=== PATIENT | male | born 1985 | race American Indian/Alaskan Native ===

== ENCOUNTER 2019-12-28 09:47 | Day surgery (SDC) | payer OTHER ==
[~2019-12-28] VITALS: Ht 177.8 cm; Wt 81.7 kg
--- NOTE | ~2019-12-28 | OR ---
[facility] [address] [place], [place] [address] Draft DATE OF OPERATION: 12/28/2019 SURGEON: Kemar Merritt MD PREOPERATIVE DIAGNOSIS: Recurrent peritonsillar abscess, left side. POSTOPERATIVE DIAGNOSIS: Recurrent peritonsillar abscess, left side. PROCEDURE: An abscess tonsillectomy. INDICATIONS: This 34-year-old male, who has had recurring problems with peritonsillar abscess. He is also known to be of a drug abuser. He has used methamphetamine 3 days ago, just coming down off that when his pain and fever became evident. The fact that the patient has had history of peritonsillar abscess same side, it was felt best care to takeout the tonsil today and treat both problems. DESCRIPTION OF PROCEDURE: The patient was placed in the supine position, had an orotracheal intubation, was placed under general anesthesia. McIvor mouth gag was inserted, but could not be fully used because the patient was edentulous on the upper half and putting the piece of gauze with upper half of the McIvor gag did not seem to help so we took off the upper and only with manual retraction with lower half to get the tongue and the endotracheal tube out of the way grasping that tonsil then with tenaculum. It was very edematous. The uvula was pushed to the right and quite edematous itself. Tissue planes were obfuscated. However, with the Bovie cautery on setting #20, we were able to dissect down finally get into the pus pocket, all the purulence was suctioned out and then using that cavity as the deep plane of the tonsil, it was dissected from the surrounding area. Because of it obstructing the view and filling up the entire pharynx plus with a trismus and the poor visualization Metzenbaum scissors were used to amputate the inferior pole, which then gave us more room. The tag of the tonsil inferiorly was then grasped with a tenaculum was dissected from the pharyngeal musculature. About 3 mL of 0.5% Marcaine with 1:200,000 epinephrine were injected superficially in the area trying to avoid an intravascular injection and some bismuth subgallate was placed into the tonsillar fossa to help with postop hemostasis. Estimated blood loss was 150 to 200 mL. Length from we got it out, bleeding stopped. The patient went to the recovery room in good condition. He will be observed there before sent home. He is able to go home today if patient is PATIENT NAME: BETTY SANCHEZ OPERATIVE REPORT DATE OF : 83 REPORT #: [id number] PHYSICIAN: KEMAR MERRITT MD PCP: NO PRIMARY CARE PHYSICIAN REPORT IS CONFIDENTIAL AND NOT TO BE RELEASED WITHOUT AUTHORIZATION [facility] [address] [place] [id number] [address] able to tolerate fluids. Kemar Merritt MD [facility] /[id number] Copies: ~ PATIENT NAME: BETTY SANCHEZ SR OPERATIVE REPORT DATE OF : 83 REPORT #: [id number] PHYSICIAN: KEMAR MERRITT MD PCP: NO PRIMARY CARE PHYSICIAN REPORT IS CONFIDENTIAL AND NOT TO BE RELEASED WITHOUT AUTHORIZATION
[2019-12-28] MEDS ORDERED: SEROQUEL XR50 MG PO (10:10)
--- NOTE | 2019-12-28 13:25 | NUR ---
12/28/19 1325 Sheets,Saadia 1319 PT ARRIVED TO PACU WITH ORAL AIRWAY IN PLACE, JAW THRUST USED TO MAINTAIN AIRWAY. RESP EVEN AND UNLABORED. VSS.
--- NOTE | 2019-12-28 14:58 | NUR ---
1430: PATIENT TRANSFERRED TO DAY SURGERY ROOM 11 FROM PACU. PATIENT VERY DROWSY. WAKES WITH TOUCH AND VERBAL STIMULI. ANSWERS SIMPLE QUESTIONS, THEN QUICKLY FALLS BACK TO SLEEP. DENIES PAIN AND NAUSEA. NO DRAINAGE SEEN FROM MOUTH. IV SITE WNL. SCDs ON. CALL LIGHT WNL. PULSE OX LEFT ON PATIENT.
[2019-12-28] MEDS ORDERED: AMOXICILLIN500 MG PO (15:17)
[2019-12-28] MEDS ORDERED: TYLENOL WITH C1 EACH PO (15:18)
--- NOTE | 2019-12-28 16:48 | NUR ---
PRESCRIPTIONS PHONE INTO [facility] IN [place]. THIS IS RELAYED TO PATIENT AND HIS SISTER.
--- NOTE | 2019-12-28 16:57 | NUR ---
PATIENT IS UP TO THE BATHROOM WITH MY STANDBY. PATIENT AMBULATES WELL, VOIDS AND AMBULATES BACK TO HIS ROOM. PATIENT IS GETTING DRESSED. DISCHARGE INSTRUCTIONS ARE GIVEN. PATIENT TRANSFERS HERSELF TO THE WHEELCHAIR AND THEN TO PERSONAL VEHICLE AND DOES THAT WELL.
--- NOTE | 2019-12-28 17:30 | NUR ---
DR MERRITT NOTIFIED VIA TELEPHONE OF PATIENT'S PLANS TO "GO HOME" THIS EVENING. PATIENT REPORTS HOME IS [place] [place].
== END 2019-12-28 17:05 | disposition home or self-care (01) ==
LOC: ED 09:47 → DS 12:15
PROVIDERS: Otolaryngology
PROC: 0CTPXZZ Resection of Tonsils, External Approach (ICD-10-PCS; principal; 2019-12-28 14:00)
DX: J36 Peritonsillar abscess (principal); F17.200 Nicotine dependence, unspecified, uncomplicated; G40.909 Epilepsy, unspecified, not intractable, without status epilepticus; Z88.8 Allergy status to other drugs, medicaments and biological substances; Z79.899 Other long term (current) drug therapy
CPT/HCPCS: 00170; 80048; 85025; 85610; 85730; 88304; 96365; 96375; 99284-25; G0480; J0295; J0330; J1100; J1885; J2250; J2270; J2405; J2704; J2765; J3010; J7030; J7121